=== PATIENT | male | born 1975 | race Caucasian/White ===

== ENCOUNTER 2022-06-09 21:00 | Emergency (ER) | payer BC ==
[2022-06-09] MEDS ORDERED: Sulfamethoxazole/Trimethoprim 800-160 MG Tab PO ONE (22:33)
== END 2022-06-09 22:46 | disposition home or self-care (01) ==
LOC: JD.ED 21:00
DX: L03.312 Cellulitis of back [any part except buttock and flank] (principal)
CPT/HCPCS: 87070; 87075; 87077; 87186; 87205; 99283; A9270